=== PATIENT | female | born 1950 | race Caucasian/White ===

== ENCOUNTER 2018-03-26 17:18 | Emergency (ER) | payer MEDICARE ==
[~2018-03-26] VITALS: Ht 162.6 cm; Wt 47.6 kg
[2018-03-26] MEDS ORDERED: cloNIDine HCL 0.1 MG TAB PO ONE ×2 (17:45→20:45)
[2018-03-26 21:30] VITALS: BP 144/101
== END 2018-03-26 21:30 | disposition home or self-care (01) ==
LOC: ER 17:26
DX: I10 Essential (primary) hypertension (principal)
CPT/HCPCS: 93005